=== PATIENT | female | born 1995 | race American Indian/Alaskan Native ===

== ENCOUNTER 2018-12-17 21:15 | Emergency (ER) | payer OTHER ==
[~2018-12-17] VITALS: Ht 157.5 cm; Wt 54.4 kg
[~2018-12-17 21:15] MED LIST: BIRTH CONTROL PO; IBUP800 PO; Robaxin500 MG PO
== END 2018-12-18 01:24 | disposition left against medical advice (07) ==
LOC: ER 21:15
DX: Z53.21 Procedure and treatment not carried out due to patient leaving prior to being seen by health care provider (principal)

== ENCOUNTER 2019-02-12 22:49 | Emergency (ER) | payer MEDICAID ==
[~2019-02-12] VITALS: Ht 157.5 cm; Wt 54.4 kg
[2019-02-12 23:16] LABS: BASOPHILS ABSOLUTE AUTO 0.02 K/mm3 (0.00-0.23); BASOPHILS PERCENT AUTO 0 % (0-2); EOSINOPHILS ABSOLUTE AUTO 0.22 K/mm3 (0.00-0.68); EOSINOPHILS PERCENT AUTO 2 % (0-6); Hematocrit 39.9 % (33.0-51.0); Hemoglobin 13.1 g/dL (11.5-16.0); IMMATURE GRAN ABSOLUTE AUTO 0.01 K/mm3 (0.00-0.10); IMMATURE GRAN PERCENT AUTO 0 % (0-1); LYMPHOCYTES ABSOLUTE AUTO 3.18 K/mm3 (0.84-5.20); LYMPHOCYTES PERCENT AUTO 34 % (21-46); MONOCYTES ABSOLUTE AUTO 0.67 K/mm3 (0.16-1.47); MONOCYTES PERCENT AUTO 7 % (4-13); Mean Corpuscular HGB 31.4 pg (26.0-34.0); Mean Corpuscular HGB Conc 32.8 g/dL (31.5-36.5); Mean Corpuscular Volume 96 fL (80-100); Mean Platelet Volume 11.8 fL (9.1-12.4); NEUTROPHILS ABSOLUTE AUTO 5.31 K/mm3 (1.96-9.15); NEUTROPHILS PERCENT AUTO 57 % (41-73); Platelet Count 309 K/mm3 (150-400); RDW Coefficient Variation 12.4 % (11.7-14.2); RDW Standard Deviation 43.8 fL (35.1-46.3); Red Blood Cell Count 4.17 M/mm3 (3.80-5.20); White Blood Cell Count 9.41 K/mm3 (4.00-11.30)
[2019-02-12 23:33] LABS: Alanine Aminotransfer (ALT/SGP 20 U/L (12-78); Albumin/Globulin Ratio 1.2 (0.8-1.8); Alk Phos 59 U/L (50-136); Anion Gap 8 mmol/L (6-16); Aspartate Aminotrans (AST/SGOT 16 U/L (12-37); Bilirubin, Total 0.4 mg/dL (0.1-1.0); Blood Urea Nitrogen 18 mg/dL (8-24); Bun/Creatinine Ratio 30.5 (12.0-20.0); CO2, Blood 26 mmol/L (21-32); Calcium, Blood 8.8 mg/dL (8.5-10.1); Chloride, Blood 107 mmol/L (98-108); Creatinine, Blood 0.59 mg/dL (0.40-1.00); Globulin, Blood 3.4 g/dL (2.2-4.0); Glomerular Filtration Rate >60 (60-); Glucose, Blood 85 mg/dL (70-99); Sodium, Blood 141 mmol/L (136-145); Total Protein, Blood 7.4 g/dL (6.4-8.2)
[2019-02-13 00:11] LABS: Source, Urine Clean Catch
[2019-02-13 00:21] LABS: Amorphous Light (0-Heavy); Appearance, Urine Hazy (Clear); Bacteria Few /hpf; Bilirubin, Urine 1+ (Neg); Blood, Urine Neg (Neg); Color, Urine Amber (P-Yellow); Glucose Qualitative, Urine Neg (Neg); Ketones, Urine 2+ (Neg); Leukocyte Esterase, Urine 1+ (Neg); Mucus Mod (0-Heavy); Nitrite, Urine Neg (Neg); Protein, Urine 1+ (Neg); Red Blood Cells, Urine Not Seen /hpf (0-2); Specific Gravity, Urine 1.025 (1.003-1.022); Squamous Epithelial Cells Few /hpf (Few); Urobilinogen, Urine 2+ (Normal); White Blood Cells, Urine 0-2 /hpf (0-5)
[2019-02-13] MEDS ORDERED: Colace100 MG PO (02:32)
[2019-02-16 02:44] LABS: CHLAMYDIA TRACHOMATIS, NAA Negative (Negative); NEISSERIA GONORRHOEAE, NAA Negative (Negative)
== END 2019-02-13 02:52 | disposition home or self-care (01) ==
LOC: ER 22:49
PROVIDERS: Emergency Medicine
DX: R10.32 Left lower quadrant pain (principal); F41.9 Anxiety disorder, unspecified; F17.200 Nicotine dependence, unspecified, uncomplicated
CPT/HCPCS: 36415; 76856; 80053; 81001; 81025; 84443; 85025; 87086; 87491; 87591; 99284-25

== ENCOUNTER 2021-03-29 15:16 | Emergency (ER) | payer OTHER ==
[~2021-03-29] VITALS: Ht 157.5 cm; Wt 70.3 kg
[~2021-03-29 15:16] MED LIST changes: +Colace100 MG PO
[2021-03-29] MEDS ORDERED: Flagyl500 MG PO (15:29)
== END 2021-03-29 15:31 | disposition home or self-care (01) ==
LOC: ER 15:16
DX: N89.8 Other specified noninflammatory disorders of vagina (principal); F17.200 Nicotine dependence, unspecified, uncomplicated; Z79.899 Other long term (current) drug therapy
CPT/HCPCS: 99283

== ENCOUNTER 2021-04-06 16:00 | Emergency (ER) | payer OTHER ==
[~2021-04-06] VITALS: Ht 157.5 cm; Wt 70.3 kg
[~2021-04-06 16:00] MED LIST changes: +Flagyl500 MG PO
[2021-04-06 17:09] LABS: BASOPHILS ABSOLUTE AUTO 0.02 K/mm3 (0.00-0.23); BASOPHILS PERCENT AUTO 0 % (0-2); EOSINOPHILS ABSOLUTE AUTO 0.05 K/mm3 (0.00-0.68); EOSINOPHILS PERCENT AUTO 1 % (0-6); Hematocrit 41.5 % (33.0-51.0); Hemoglobin 13.8 g/dL (11.5-16.0); IMMATURE GRAN ABSOLUTE AUTO 0.02 K/mm3 (0.00-0.10); IMMATURE GRAN PERCENT AUTO 0 % (0-1); LYMPHOCYTES ABSOLUTE AUTO 1.69 K/mm3 (0.84-5.20); LYMPHOCYTES PERCENT AUTO 23 % (21-46); MONOCYTES ABSOLUTE AUTO 0.58 K/mm3 (0.16-1.47); MONOCYTES PERCENT AUTO 8 % (4-13); Mean Corpuscular HGB 31.4 pg (26.0-34.0); Mean Corpuscular HGB Conc 33.3 g/dL (31.5-36.5); Mean Corpuscular Volume 95 fL (80-100); Mean Platelet Volume 12.2 fL (9.1-12.4); NEUTROPHILS ABSOLUTE AUTO 5.16 K/mm3 (1.96-9.15); NEUTROPHILS PERCENT AUTO 69 % (41-73); Platelet Count 237 K/mm3 (150-400); RDW Coefficient Variation 14.7 % (11.7-14.2); RDW Standard Deviation 51.1 fL (35.1-46.3); Red Blood Cell Count 4.39 M/mm3 (3.80-5.20); White Blood Cell Count 7.52 K/mm3 (4.00-11.30)
[2021-04-06 17:18] LABS: Alanine Aminotransfer (ALT/SGP 18 U/L (12-78); Albumin, Blood 3.9 g/dL (3.4-5.0); Alk Phos 46 U/L (50-136); Anion Gap 5 mmol/L (6-16); Aspartate Aminotrans (AST/SGOT 11 U/L (12-37); Bilirubin, Total 0.3 mg/dL (0.1-1.0); Blood Urea Nitrogen 10 mg/dL (8-24); Bun/Creatinine Ratio 15.1 (12.0-20.0); CO2, Blood 28 mmol/L (21-32); Calcium, Blood 9.1 mg/dL (8.5-10.1); Chloride, Blood 107 mmol/L (98-108); Creatinine, Blood 0.66 mg/dL (0.40-1.00); Globulin, Blood 3.9 g/dL (2.2-4.0); Glomerular Filtration Rate >60 (60-); Glucose, Blood 96 mg/dL (70-99); Sodium, Blood 140 mmol/L (136-145); Total Protein, Blood 7.8 g/dL (6.4-8.2)
[2021-04-06] MEDS ORDERED: ONDA4ODT MM (18:22)
== END 2021-04-06 18:50 | disposition home or self-care (01) ==
LOC: ER 16:00
PROVIDERS: Physician Assistant
DX: R11.2 Nausea with vomiting, unspecified (principal); F17.200 Nicotine dependence, unspecified, uncomplicated; Z79.899 Other long term (current) drug therapy
CPT/HCPCS: 36415; 80053; 81025; 83690; 84703; 85025; 99284; J7030

== ENCOUNTER → 2021-04-16 | Outpatient (CLI) | payer OTHER ==
[~2021-04-16] MED LIST changes: +ONDA4ODT MM
[2021-04-18 01:10] LABS: CHLAMYDIA TRACHOMATIS, NAA Negative (Negative)
== END | disposition home or self-care (01) ==
LOC: LAB SHORT 11:56
PROVIDERS: Family Medicine
DX: R30.0 Dysuria (principal); Z91.89 Other specified personal risk factors, not elsewhere classified
CPT/HCPCS: 87077; 87086; 87186; 87491; 87591

== ENCOUNTER 2021-09-01 12:18 | Emergency (ER) | payer OTHER ==
[~2021-09-01] VITALS: Ht 160 cm; Wt 61.2 kg
[2021-09-01 12:56] LABS: BASOPHILS ABSOLUTE AUTO 0.02 K/mm3 (0.00-0.23); BASOPHILS PERCENT AUTO 0 % (0-2); EOSINOPHILS ABSOLUTE AUTO 0.19 K/mm3 (0.00-0.68); EOSINOPHILS PERCENT AUTO 2 % (0-6); Hematocrit 40.3 % (33.0-51.0); Hemoglobin 13.4 g/dL (11.5-16.0); IMMATURE GRAN ABSOLUTE AUTO 0.03 K/mm3 (0.00-0.10); IMMATURE GRAN PERCENT AUTO 0 % (0-1); LYMPHOCYTES ABSOLUTE AUTO 1.53 K/mm3 (0.84-5.20); LYMPHOCYTES PERCENT AUTO 19 % (21-46); MONOCYTES ABSOLUTE AUTO 0.34 K/mm3 (0.16-1.47); MONOCYTES PERCENT AUTO 4 % (4-13); Mean Corpuscular HGB 31.7 pg (26.0-34.0); Mean Corpuscular HGB Conc 33.3 g/dL (31.5-36.5); Mean Corpuscular Volume 95 fL (80-100); NEUTROPHILS ABSOLUTE AUTO 6.16 K/mm3 (1.96-9.15); NEUTROPHILS PERCENT AUTO 75 % (41-73); Platelet Count 295 K/mm3 (150-400); RDW Coefficient Variation 12.7 % (11.7-14.2); RDW Standard Deviation 44.9 fL (35.1-46.3); Red Blood Cell Count 4.23 M/mm3 (3.80-5.20); White Blood Cell Count 8.27 K/mm3 (4.00-11.30)
[2021-09-01 13:12] LABS: Alanine Aminotransfer (ALT/SGP 19 U/L (12-78); Albumin, Blood 3.7 g/dL (3.4-5.0); Albumin/Globulin Ratio 1.1 (0.8-1.8); Alk Phos 45 U/L (50-136); Anion Gap 6 mmol/L (6-16); Aspartate Aminotrans (AST/SGOT 12 U/L (12-37); Bilirubin, Total 0.4 mg/dL (0.1-1.0); Blood Urea Nitrogen 12 mg/dL (8-24); Bun/Creatinine Ratio 18.5 (12.0-20.0); CO2, Blood 27 mmol/L (21-32); Calcium, Blood 9.4 mg/dL (8.5-10.1); Chloride, Blood 109 mmol/L (98-108); Creatinine, Blood 0.65 mg/dL (0.40-1.00); Globulin, Blood 3.4 g/dL (2.2-4.0); Glomerular Filtration Rate >60 (60-); Glucose, Blood 94 mg/dL (70-99); Potassium, Blood 4.1 mmol/L (3.5-5.5); Sodium, Blood 142 mmol/L (136-145); Total Protein, Blood 7.1 g/dL (6.4-8.2)
[2021-09-01] MEDS ORDERED: ONDA4ODT SL (17:07)
[2021-09-01] MEDS ORDERED: IBUP400 PO (17:07)
== END 2021-09-01 17:40 | disposition home or self-care (01) ==
LOC: ER 12:18
PROVIDERS: Physician Assistant
DX: F11.23 Opioid dependence with withdrawal (principal); R00.2 Palpitations; F17.210 Nicotine dependence, cigarettes, uncomplicated; Z79.899 Other long term (current) drug therapy
CPT/HCPCS: 36415; 80053; 85025; 96374; 99284-25; A9270; J2405; J7030

== ENCOUNTER → 2021-09-19 | Outpatient (CLI) | payer OTHER ==
[~2021-09-19] MED LIST changes: +IBUP400 PO; +ONDA4ODT SL
[2021-09-19 15:53] LABS: BASOPHILS ABSOLUTE AUTO 0.01 K/mm3 (0.00-0.23); BASOPHILS PERCENT AUTO 0 % (0-2); EOSINOPHILS PERCENT AUTO 3 % (0-6); Hematocrit 42.7 % (33.0-51.0); Hemoglobin 13.9 g/dL (11.5-16.0); IMMATURE GRAN ABSOLUTE AUTO 0.02 K/mm3 (0.00-0.10); IMMATURE GRAN PERCENT AUTO 0 % (0-1); LYMPHOCYTES ABSOLUTE AUTO 1.96 K/mm3 (0.84-5.20); LYMPHOCYTES PERCENT AUTO 33 % (21-46); MONOCYTES ABSOLUTE AUTO 0.27 K/mm3 (0.16-1.47); MONOCYTES PERCENT AUTO 5 % (4-13); Mean Corpuscular HGB 31.7 pg (26.0-34.0); Mean Corpuscular HGB Conc 32.6 g/dL (31.5-36.5); Mean Corpuscular Volume 97 fL (80-100); Mean Platelet Volume 12.7 fL (9.1-12.4); NEUTROPHILS ABSOLUTE AUTO 3.49 K/mm3 (1.96-9.15); NEUTROPHILS PERCENT AUTO 59 % (41-73); Platelet Count 277 K/mm3 (150-400); RDW Coefficient Variation 12.9 % (11.7-14.2); RDW Standard Deviation 46.4 fL (35.1-46.3); Red Blood Cell Count 4.39 M/mm3 (3.80-5.20); White Blood Cell Count 5.95 K/mm3 (4.00-11.30)
[2021-09-19 16:00] LABS: Alanine Aminotransfer (ALT/SGP 17 U/L (12-78); Albumin/Globulin Ratio 1.2 (0.8-1.8); Alk Phos 48 U/L (50-136); Amylase, Blood 58 U/L (25-115); Anion Gap 5 mmol/L (6-16); Aspartate Aminotrans (AST/SGOT 9 U/L (12-37); Bilirubin, Total 0.3 mg/dL (0.1-1.0); Blood Urea Nitrogen 12 mg/dL (8-24); Bun/Creatinine Ratio 19.7 (12.0-20.0); CO2, Blood 27 mmol/L (21-32); Calcium, Blood 9.3 mg/dL (8.5-10.1); Chloride, Blood 106 mmol/L (98-108); Creatinine, Blood 0.61 mg/dL (0.40-1.00); Globulin, Blood 3.3 g/dL (2.2-4.0); Glomerular Filtration Rate >60 (60-); Glucose, Blood 86 mg/dL (70-99); Potassium, Blood 4.4 mmol/L (3.5-5.5); Sodium, Blood 138 mmol/L (136-145); Total Protein, Blood 7.3 g/dL (6.4-8.2)
[2021-09-19 16:26] LABS: Beta Hcg Serum Pregnancy Negative (Negative)
[2021-09-20 07:09] LABS: HIV SCREEN 4TH GENERATION WRFX Non Reactive (Non Reactive)
[2021-09-21 09:15] LABS: RPR Non-reactive (Nonreactive)
[2021-09-21 15:11] LABS: CHLAMYDIA TRACHOMATIS, NAA Negative (Negative)
== END | disposition home or self-care (01) ==
LOC: LAB SHORT 14:52
PROVIDERS: Physician Assistant
DX: Z11.59 Encounter for screening for other viral diseases (principal); R11.2 Nausea with vomiting, unspecified
CPT/HCPCS: 80053; 82150; 83690; 84703; 85025; 86592; 87389

== ENCOUNTER 2023-04-02 06:50 | Emergency (ER) | payer OTHER ==
[~2023-04-02] VITALS: Ht 160 cm; Wt 65.8 kg
[2023-04-02] MEDS ORDERED: METH40 PO (07:40)
[2023-04-02] MEDS ORDERED: ESCI10 PO (07:40)
[2023-04-02] MEDS ORDERED: MIRT30 PO (07:40)
[2023-04-02] MEDS ORDERED: ABILIFY MYCITE10 M2 PO (07:41)
[2023-04-02 08:18] LABS: BASOPHILS ABSOLUTE AUTO 0.01 K/mm3 (0.00-0.23); BASOPHILS PERCENT AUTO 0 % (0-2); EOSINOPHILS ABSOLUTE AUTO 0.32 K/mm3 (0.00-0.68); EOSINOPHILS PERCENT AUTO 5 % (0-6); Hematocrit 34.9 % (33.0-51.0); Hemoglobin 11.5 g/dL (11.5-16.0); IMMATURE GRAN ABSOLUTE AUTO 0.01 K/mm3 (0.00-0.10); IMMATURE GRAN PERCENT AUTO 0 % (0-1); LYMPHOCYTES ABSOLUTE AUTO 3.58 K/mm3 (0.84-5.20); LYMPHOCYTES PERCENT AUTO 52 % (21-46); MONOCYTES ABSOLUTE AUTO 0.47 K/mm3 (0.16-1.47); MONOCYTES PERCENT AUTO 7 % (4-13); Mean Corpuscular HGB 30.3 pg (26.0-34.0); Mean Corpuscular Volume 92 fL (80-100); Mean Platelet Volume 11.5 fL (9.1-12.4); NEUTROPHILS ABSOLUTE AUTO 2.52 K/mm3 (1.96-9.15); NEUTROPHILS PERCENT AUTO 37 % (41-73); Platelet Count 268 K/mm3 (150-400); RDW Coefficient Variation 13.4 % (11.7-14.2); RDW Standard Deviation 45.6 fL (35.1-46.3); Red Blood Cell Count 3.79 M/mm3 (3.80-5.20); White Blood Cell Count 6.91 K/mm3 (4.00-11.30)
[2023-04-02 08:34] LABS: Alanine Aminotransfer (ALT/SGP 16 U/L (12-78); Albumin, Blood 3.8 g/dL (3.4-5.0); Alk Phos 66 U/L (50-136); Anion Gap 7 mmol/L (6-16); Aspartate Aminotrans (AST/SGOT 13 U/L (12-37); Bilirubin, Total <0.1 mg/dL (0.1-1.0); Blood Urea Nitrogen 9 mg/dL (8-24); Bun/Creatinine Ratio 14.7 (12.0-20.0); CO2, Blood 26 mmol/L (21-32); Calcium, Blood 9.1 mg/dL (8.5-10.1); Chloride, Blood 106 mmol/L (98-108); Creatinine, Blood 0.61 mg/dL (0.40-1.00); Globulin, Blood 3.7 g/dL (2.2-4.0); Glomerular Filtration Rate 125 (60-); Glucose, Blood 95 mg/dL (70-99); Potassium, Blood 3.4 mmol/L (3.5-5.5); Sodium, Blood 139 mmol/L (136-145); Total Protein, Blood 7.5 g/dL (6.4-8.2)
[2023-04-02 10:00] VITALS: BP 100/65
== END 2023-04-02 10:42 | disposition home or self-care (01) ==
LOC: ER 06:50
PROVIDERS: Emergency Medicine
DX: O02.1 Missed abortion (principal); O99.331 Smoking (tobacco) complicating pregnancy, first trimester; F17.210 Nicotine dependence, cigarettes, uncomplicated; Z79.899 Other long term (current) drug therapy; Z3A.01 Less than 8 weeks gestation of pregnancy
CPT/HCPCS: 76801; 76817; 80053; 83690; 84702; 84703; 85025; 86900; 86901; 99284-25

== ENCOUNTER 2023-08-01 10:19 | Emergency (ER) | payer OTHER ==
[~2023-08-01] VITALS: Ht 162.6 cm; Wt 61.2 kg
[~2023-08-01 10:19] MED LIST changes: +ABILIFY MYCITE10 M2 PO; +ESCI10 PO; +METH40 PO; +MIRT30 PO
[2023-08-01 10:48] VITALS: BP 113/74
[2023-08-01] MEDS ORDERED: AMOCLA875 PO (10:51)
[2023-08-01] MEDS ORDERED: Ultram50 MG PO (10:51)
== END 2023-08-01 10:52 | disposition home or self-care (01) ==
LOC: ER 10:19
DX: K04.7 Periapical abscess without sinus (principal); Z79.899 Other long term (current) drug therapy; F17.210 Nicotine dependence, cigarettes, uncomplicated
CPT/HCPCS: 99282

== ENCOUNTER 2024-03-17 12:05 | Emergency (ER) | payer OTHER ==
[~2024-03-17] VITALS: Ht 162.6 cm; Wt 72.6 kg
[~2024-03-17 12:05] MED LIST changes: +AMOCLA875 PO; +Monodox100 MG PO; +Ultram50 MG PO
[2024-03-17 12:23] VITALS: BP 148/89
[2024-03-17] MEDS ORDERED: CefTRIAXone 500 MG Vial IM ONE (12:30)
[2024-03-17] MEDS ORDERED: DOXY100 PO (12:32)
[2024-03-17] MEDS ORDERED: METR500 PO (12:32)
== END 2024-03-17 13:10 | disposition home or self-care (01) ==
LOC: ER 12:05
DX: Z20.2 Contact with and (suspected) exposure to infections with a predominantly sexual mode of transmission (principal); Z79.899 Other long term (current) drug therapy
CPT/HCPCS: 96372; 99282-25; J0696

== ENCOUNTER 2024-06-06 09:36 | Emergency (ER) | payer OTHER ==
[~2024-06-06] VITALS: Ht 160 cm; Wt 70.3 kg
[~2024-06-06 09:36] MED LIST changes: +DOXY100 PO; +METR500 PO
[2024-06-06 10:43] LABS: BASOPHILS ABSOLUTE AUTO 0.02 K/mm3 (0.00-0.23); BASOPHILS PERCENT AUTO 0 % (0-2); EOSINOPHILS ABSOLUTE AUTO 0.08 K/mm3 (0.00-0.68); EOSINOPHILS PERCENT AUTO 1 % (0-6); Hematocrit 37.4 % (33.0-51.0); Hemoglobin 12.5 g/dL (11.5-16.0); IMMATURE GRAN ABSOLUTE AUTO 0.04 K/mm3 (0.00-0.10); IMMATURE GRAN PERCENT AUTO 0 % (0-1); LYMPHOCYTES ABSOLUTE AUTO 1.43 K/mm3 (0.84-5.20); LYMPHOCYTES PERCENT AUTO 15 % (21-46); MONOCYTES ABSOLUTE AUTO 0.39 K/mm3 (0.16-1.47); MONOCYTES PERCENT AUTO 4 % (4-13); Mean Corpuscular HGB Conc 33.4 g/dL (31.5-36.5); Mean Corpuscular Volume 93 fL (80-100); Mean Platelet Volume 12.2 fL (9.1-12.4); NEUTROPHILS ABSOLUTE AUTO 7.36 K/mm3 (1.96-9.15); NEUTROPHILS PERCENT AUTO 79 % (41-73); Platelet Count 264 K/mm3 (150-400); RDW Coefficient Variation 13.1 % (11.7-14.2); RDW Standard Deviation 44.4 fL (35.1-46.3); Red Blood Cell Count 4.03 M/mm3 (3.80-5.20); White Blood Cell Count 9.32 K/mm3 (4.00-11.30)
[2024-06-06 11:24] LABS: Albumin, Blood 3.1 g/dL (3.4-5.0); Albumin/Globulin Ratio 0.8 (0.8-1.8); Bilirubin, Total 0.3 mg/dL (0.1-1.0); Bun/Creatinine Ratio 14.2 (12.0-20.0); Calcium, Blood 9.1 mg/dL (8.5-10.1); Creatinine, Blood 0.57 mg/dL (0.40-1.00); Globulin, Blood 3.9 g/dL (2.2-4.0); Potassium, Blood 3.9 mmol/L (3.5-5.5)
[2024-06-06] MEDS ORDERED: DiphenhydrAMINE HCl 50 MG/ML 1ML Vial IV ONE (12:05)
[2024-06-06] MEDS ORDERED: Metoclopramide HCl 5MG / ML 2ML Vial IV ONE (12:05)
[2024-06-06] MEDS ORDERED: Clindamycin Phosphate 300 MG in NS 50 ML IV ONE (12:05)
[2024-06-06] MEDS ORDERED: CLIN300 PO (13:57)
[2024-06-06 14:03] VITALS: BP 104/54
== END 2024-06-06 14:08 | disposition home or self-care (01) ==
LOC: ER 09:36
PROVIDERS: Emergency Medicine
DX: L03.115 Cellulitis of right lower limb (principal); L02.415 Cutaneous abscess of right lower limb; Z79.899 Other long term (current) drug therapy
CPT/HCPCS: 80053; 84702; 85025; J1200; J2765

== ENCOUNTER → 2024-06-21 | Outpatient (CLI) | payer OTHER ==
[~2024-06-21] MED LIST changes: +CLIN300 PO
[2024-06-21 14:25] LABS: BASOPHILS ABSOLUTE AUTO 0.01 K/mm3 (0.00-0.23); BASOPHILS PERCENT AUTO 0 % (0-2); EOSINOPHILS ABSOLUTE AUTO 0.29 K/mm3 (0.00-0.68); EOSINOPHILS PERCENT AUTO 3 % (0-6); Hematocrit 33.7 % (33.0-51.0); Hemoglobin 11.4 g/dL (11.5-16.0); IMMATURE GRAN ABSOLUTE AUTO 0.02 K/mm3 (0.00-0.10); IMMATURE GRAN PERCENT AUTO 0 % (0-1); LYMPHOCYTES ABSOLUTE AUTO 2.03 K/mm3 (0.84-5.20); LYMPHOCYTES PERCENT AUTO 23 % (21-46); MONOCYTES ABSOLUTE AUTO 0.52 K/mm3 (0.16-1.47); MONOCYTES PERCENT AUTO 6 % (4-13); Mean Corpuscular HGB 31.5 pg (26.0-34.0); Mean Corpuscular HGB Conc 33.8 g/dL (31.5-36.5); Mean Corpuscular Volume 93 fL (80-100); Mean Platelet Volume 11.6 fL (9.1-12.4); NEUTROPHILS PERCENT AUTO 67 % (41-73); Platelet Count 275 K/mm3 (150-400); RDW Coefficient Variation 13.3 % (11.7-14.2); RDW Standard Deviation 45.6 fL (35.1-46.3); Red Blood Cell Count 3.62 M/mm3 (3.80-5.20); White Blood Cell Count 8.67 K/mm3 (4.00-11.30)
[2024-06-21 17:41] LABS: Source, Urine Clean Catch
[2024-06-21 19:22] LABS: Appearance, Urine Hazy (Clear); Bilirubin, Urine Neg (Neg); Blood, Urine Neg (Neg); Color, Urine Yellow (P-Yellow); Glucose Qualitative, Urine Neg (Neg); Ketones, Urine Neg (Neg); Leukocyte Esterase, Urine Neg (Neg); Nitrite, Urine Neg (Neg); Protein, Urine Neg (Neg); Urobilinogen, Urine NORM (Normal)
[2024-06-21 19:44] LABS: Bacteria Many /hpf; Mucus Light (0-Heavy); Red Blood Cells, Urine 0-2 /hpf (0-2); Squamous Epithelial Cells Mod /hpf (Few)
[2024-06-22 15:45] LABS: HEPATITIS B SURFACE ANTIGEN Negative (Negative)
[2024-06-22 17:01] LABS: HIV 1,2 COMBO ANTIGEN/ANTIBODY Negative (Negative)
[2024-06-23 10:55] LABS: HEPATITIS C AB CIA INTERP Negative (Negative); HEPATITIS C ANTIBODY CIA INDEX 0.12 IV
== END | disposition home or self-care (01) ==
LOC: LAB 13:36 → LAB SHORT 13:36
PROVIDERS: Registered Nurse Community Health
DX: Z34.92 Encounter for supervision of normal pregnancy, unspecified, second trimester (principal)
CPT/HCPCS: 81001; 84443; 86803; 87086; 87340; 87389

== ENCOUNTER → 2024-07-01 | Outpatient (CLI) | payer OTHER ==
[2024-07-03 17:55] LABS: APTIMA MEDIA TYPE Urine; C. TRACHOMATIS BY TMA Negative (Negative); N. GONORRHOEAE BY TMA Negative (Negative); SPECIMEN SOURCE Urine
== END | disposition home or self-care (01) ==
LOC: LAB 14:23 → LAB SHORT 14:23
PROVIDERS: Registered Nurse Community Health
DX: Z34.92 Encounter for supervision of normal pregnancy, unspecified, second trimester (principal)
CPT/HCPCS: 87491; 87591

== ENCOUNTER 2024-07-20 11:09 | Emergency (ER) | payer OTHER ==
[~2024-07-20] VITALS: Ht 157.5 cm; Wt 71.7 kg
[2024-07-20 11:14] VITALS: BP 133/86
== END 2024-07-20 11:17 | disposition home or self-care (01) ==
LOC: ER 11:09
DX: K59.00 Constipation, unspecified (principal); Z79.899 Other long term (current) drug therapy
CPT/HCPCS: 99282

== ENCOUNTER → 2024-09-30 | Outpatient (CLI) | payer OTHER ==
[2024-09-30 16:26] LABS: Hematocrit 35.6 % (33.0-51.0); Hemoglobin 11.8 g/dL (11.5-16.0)
== END ==
LOC: LAB 14:04 → LAB SHORT 14:04
PROVIDERS: Registered Nurse Community Health
DX: Z34.93 Encounter for supervision of normal pregnancy, unspecified, third trimester (principal)
CPT/HCPCS: 82950; 85014; 85018

== ENCOUNTER → 2024-10-13 | Outpatient (CLI) | payer OTHER ==
[2024-10-14 13:11] LABS: Chlamydia Trachomatis Urine NOT DETECTED (NOT DETECT); Neisseria Gonorrhoea Urine NOT DETECTED (NOT DETECT)
== END ==
LOC: LAB SHORT 18:27
PROVIDERS: Registered Nurse Community Health
DX: O09.893 Supervision of other high risk pregnancies, third trimester (principal); Z3A.00 Weeks of gestation of pregnancy not specified
CPT/HCPCS: 87491; 87591

== ENCOUNTER → 2024-10-26 | Outpatient (CLI) | payer OTHER | END | disposition home or self-care (01) | LOC: LAB 17:22 → LAB SHORT 17:22 | DX: Z86.14 Personal history of Methicillin resistant Staphylococcus aureus infection (principal) | CPT/HCPCS: 87081 ==

== ENCOUNTER → 2024-11-10 | Outpatient (CLI) | payer OTHER | LOC: LAB SHORT 15:37 → LAB 15:37 | DX: Z86.14 Personal history of Methicillin resistant Staphylococcus aureus infection (principal) | CPT/HCPCS: 87081 ==

== ENCOUNTER → 2024-11-29 | Outpatient (CLI) | payer OTHER | LOC: LAB 12:00 → LAB SHORT 12:00 | DX: Z34.93 Encounter for supervision of normal pregnancy, unspecified, third trimester (principal) | CPT/HCPCS: 87081; 87150 ==

== ENCOUNTER 2024-12-10 19:05 | Inpatient (IN) | payer OTHER ==
[~2024-12-10] VITALS: Ht 160 cm; Wt 88.6 kg
[~2024-12-10 19:05] MED LIST changes: +PRENATAL TABLE1 EAC2 PO; +VALA500 PO
[2024-12-10 20:41] VITALS: BP 112/68
[2024-12-10] MEDS ORDERED: OXYTOCIN/RINGER'S LACTATE 500 ML IV SCH (20:55)
[2024-12-10] MEDS ORDERED: Misoprostol 25 MCG Tab VAG PRN (20:55)
[2024-12-10] MEDS ORDERED: Oxytocin 10 Unit / ML Vial IM PRN (20:55)
[2024-12-10] MEDS ORDERED: Acetaminophen 500 MG Tab PO PRN (20:55)
[2024-12-10] MEDS ORDERED: Lactated Ringer's 1,000 ML IV SCH (20:55)
[2024-12-10] MEDS ORDERED: FentaNYL 2mcg/ml-Bup 0.1% Epd 250 ML EPI PRN (20:55)
[2024-12-10] MEDS ORDERED: Methylergonovine Maleate 0.2MG / ML 1ML Amp IM PRN (20:55)
[2024-12-10] MEDS ORDERED: Carboprost Tromethamine 250 MCG/ML 1ML Amp IM PRN (20:55)
[2024-12-10] MEDS ORDERED: ePHEDrine Sulfate 50 MG/ML 1ML Injection XX PRN (20:55)
[2024-12-10] MEDS ORDERED: Lactated Ringer's 1,000 ML IV PRN ×3 (20:55→21:00)
[2024-12-10] MEDS ORDERED: Misoprostol 200 MCG Tab BC PRN (20:55)
[2024-12-10] MEDS ORDERED: Ondansetron HCl 2 MG / ML 2ML Vial IV PRN (20:55)
[2024-12-10] MEDS ORDERED: Misoprostol 200 MCG Tab PR PRN (20:55)
[2024-12-10] MEDS ORDERED: Tranexamic Acid 100 ML IV SCH (20:55)
[2024-12-10] MEDS ORDERED: OXYTOCIN/RINGER'S LACTATE 500 ML IV PRN (20:55)
[2024-12-10] MEDS ORDERED: Calcium Carbonate 500 MG Tab Chew PO PRN (21:05)
[2024-12-10 21:32] LABS: BASOPHILS ABSOLUTE AUTO 0.01 K/mm3 (0.00-0.23); BASOPHILS PERCENT AUTO 0 % (0-2); EOSINOPHILS ABSOLUTE AUTO 0.16 K/mm3 (0.00-0.68); EOSINOPHILS PERCENT AUTO 2 % (0-6); Hematocrit 30.5 % (33.0-51.0); Hemoglobin 10.1 g/dL (11.5-16.0); IMMATURE GRAN ABSOLUTE AUTO 0.03 K/mm3 (0.00-0.10); IMMATURE GRAN PERCENT AUTO 0 % (0-1); LYMPHOCYTES ABSOLUTE AUTO 2.11 K/mm3 (0.84-5.20); LYMPHOCYTES PERCENT AUTO 22 % (21-46); MONOCYTES ABSOLUTE AUTO 0.71 K/mm3 (0.16-1.47); MONOCYTES PERCENT AUTO 8 % (4-13); Mean Corpuscular HGB 28.8 pg (26.0-34.0); Mean Corpuscular HGB Conc 33.1 g/dL (31.5-36.5); Mean Corpuscular Volume 87 fL (80-100); Mean Platelet Volume 12.6 fL (9.1-12.4); NEUTROPHILS ABSOLUTE AUTO 6.38 K/mm3 (1.96-9.15); NEUTROPHILS PERCENT AUTO 68 % (41-73); Platelet Count 236 K/mm3 (150-400); RDW Coefficient Variation 14.8 % (11.7-14.2); RDW Standard Deviation 47.2 fL (35.1-46.3); Red Blood Cell Count 3.51 M/mm3 (3.80-5.20)
[2024-12-10 22:12] VITALS: BP 119/77
[2024-12-10] MEDS ORDERED: MIRT30 PO (22:41)
[2024-12-10 22:48] VITALS: BP 125/81
[2024-12-10 23:19] VITALS: BP 129/75
[2024-12-10 23:50] VITALS: BP 142/85
[2024-12-11] VITALS (24 sets, daily range): BP systolic 90–150; BP diastolic 55–83
[2024-12-11] MEDS ORDERED: Methadone HCL 10 MG TAB PO SCH (11:50)
[2024-12-11] MEDS ORDERED: Lidocaine 2% Jelly Uro-Jet TOP ONE (13:00)
[2024-12-11] MEDS ORDERED: Sod Phosphate/Sod Biphosphate 132 ML BTL PR ONE (18:00)
[2024-12-11] MEDS ORDERED: Methadone HCL 5 MG TAB PO PRN (18:00)
[2024-12-11] MEDS ORDERED: Magnesium Citrate 300 ML BTL PO ONE (18:00)
[2024-12-12] VITALS (50 sets, daily range): BP systolic 83–140; BP diastolic 50–85
[2024-12-12] MEDS ORDERED: Lidocaine HCl 2% 10 ML SDA ONE (08:32)
[2024-12-12] MEDS ORDERED: Methadone HCL 10 MG TAB PO SCH (10:00)
[2024-12-12] MEDS ORDERED: Bupivacaine 0.5% HCl 5 MG/ML 30MLVIAL ONE (17:09)
[2024-12-12] MEDS ORDERED: EpiNEPhrine 1 MG/1 ML 1ML Vial ONE (17:12)
[2024-12-12] MEDS ORDERED: NS 1,000 ML IV ONE (17:44)
[2024-12-12] MEDS ORDERED: Famotidine 10 MG/ML 2ML Vial IV ONE (18:05)
[2024-12-12] MEDS ORDERED: CeFAZolin Sodium 2,000 MG in NS 100 ML IV SCH (18:05)
[2024-12-12] MEDS ORDERED: Metoclopramide HCl 5MG / ML 2ML Vial IV ONE (18:05)
[2024-12-12] MEDS ORDERED: Azithromycin 500 MG in NS 250 ML IV SCH (18:05)
[2024-12-12] MEDS ORDERED: Oxytocin 10 Unit / ML Vial ONE ×3 (18:34→18:35)
[2024-12-12 18:49] LABS: PCO2 Cord - Arterial 59.7 mmHg (40-50); PO2 Cord - Arterial < 14.0 mmHg (16-20); pH Cord - Arterial 7.26 (7.28-7.35)
[2024-12-12 18:51] LABS: PO2 Cord - Venous 25.2 mmHg (28-32); pH Umbilical Cord - Venous 7.35 (7.26-7.35)
[2024-12-12] MEDS ORDERED: Ketorolac Tromethamine 30mg Vial ONE (18:58)
--- NOTE | 2024-12-12 19:02 | NUR ---
12/12/241901 Ethan Chavis PT IN ROOM UPON ARRIVAL TO [facility], REPORT TAKEN AT 1850 AND CARE ASSUMED AT THAT TIME
[2024-12-12] MEDS ORDERED: Lanolin Cream TOP PRN (19:25)
[2024-12-12] MEDS ORDERED: OxyCODONE HCL 5 MG TAB PO PRN ×2 (19:25→19:30)
[2024-12-12] MEDS ORDERED: Acetaminophen 500 MG Tab PO PRN (19:25)
[2024-12-12] MEDS ORDERED: Ondansetron HCl 2 MG / ML 2ML Vial IV PRN (19:25)
[2024-12-12] MEDS ORDERED: Simethicone 80 MG Chew PO PRN (19:30)
[2024-12-12] MEDS ORDERED: HydrOXYzine Pamoate 25 MG Cap PO PRN (19:30)
[2024-12-12] MEDS ORDERED: Promethazine HCl 25 MG Tab PO PRN (19:30)
[2024-12-12] MEDS ORDERED: NS 1,000 ML BAG IR SCH (19:45)
[2024-12-12] MEDS ORDERED: Ketorolac Tromethamine 30mg Vial IV SCH (20:00)
[2024-12-12] MEDS ORDERED: Docusate Sodium 100 MG Cap PO SCH (21:00)
[2024-12-12] MEDS ORDERED: Magnesium Hydroxide Conc 10 ML UDC PO SCH (21:00)
[2024-12-13] VITALS (11 sets, daily range): BP systolic 99–122; BP diastolic 55–78
[2024-12-13] MEDS ORDERED: Ibuprofen 400 MG Tab PO SCH
[2024-12-13 01:01] LABS: Albumin/Globulin Ratio 0.5 (0.8-1.8); Bilirubin, Total 0.2 mg/dL (0.1-1.0); Bun/Creatinine Ratio 10.8 (12.0-20.0); Calcium, Blood 7.8 mg/dL (8.5-10.1); Creatinine, Blood 0.56 mg/dL (0.40-1.00); Globulin, Blood 3.7 g/dL (2.2-4.0); Magnesium, Blood 2.4 mg/dL (1.6-2.4); Potassium, Blood 3.8 mmol/L (3.5-5.5); Total Protein, Blood 5.7 g/dL (6.4-8.2)
[2024-12-13 06:10] LABS: BASOPHILS ABSOLUTE AUTO 0.01 K/mm3 (0.00-0.23); BASOPHILS PERCENT AUTO 0 % (0-2); EOSINOPHILS PERCENT AUTO 0 % (0-6); Hematocrit 26.4 % (33.0-51.0); Hemoglobin 8.5 g/dL (11.5-16.0); IMMATURE GRAN ABSOLUTE AUTO 0.09 K/mm3 (0.00-0.10); IMMATURE GRAN PERCENT AUTO 1 % (0-1); LYMPHOCYTES ABSOLUTE AUTO 1.04 K/mm3 (0.84-5.20); LYMPHOCYTES PERCENT AUTO 7 % (21-46); MONOCYTES ABSOLUTE AUTO 0.71 K/mm3 (0.16-1.47); MONOCYTES PERCENT AUTO 5 % (4-13); Mean Corpuscular HGB 28.5 pg (26.0-34.0); Mean Corpuscular HGB Conc 32.2 g/dL (31.5-36.5); Mean Corpuscular Volume 89 fL (80-100); Mean Platelet Volume 12.8 fL (9.1-12.4); NEUTROPHILS ABSOLUTE AUTO 12.83 K/mm3 (1.96-9.15); NEUTROPHILS PERCENT AUTO 87 % (41-73); Platelet Count 199 K/mm3 (150-400); Red Blood Cell Count 2.98 M/mm3 (3.80-5.20); White Blood Cell Count 14.68 K/mm3 (4.00-11.30)
[2024-12-13] MEDS ORDERED: Prenatal Vit/FE Fumarate/FA 1 Tab PO SCH (09:00)
[2024-12-13] MEDS ORDERED: Tranexamic Acid 100 ML IV ONE (10:45)
[2024-12-13] MEDS ORDERED: Sod Ferric Gluc Complx/Sucrose 125 MG in NS 100 ML IV SCH (12:00)
[2024-12-13] MEDS ORDERED: Ketorolac Tromethamine 30mg Vial IV PRN (13:45)
[2024-12-13] MEDS ORDERED: FentaNYL Citrate 50 MCG/ML 2 ML Injection ONE (17:15)
[2024-12-13] MEDS ORDERED: FentaNYL Citrate 50 MCG/ML 2 ML Injection IV ONE (17:15)
[2024-12-13] MEDS ORDERED: Methylergonovine Maleate 0.2 MG Tab PO ONE (17:55)
[2024-12-13] MEDS ORDERED: CeFAZolin Sodium 2,000 MG in NS 100 ML IV SCH (18:20)
--- NOTE | 2024-12-13 20:13 | NUR ---
PT D/C'D PER ORDERS TO LEAVE FOR SACRJACOB BARTLETT TO BE WITH NB THAT WAS TRANSPORTED FORO HIGHER LEVEL OF CARE. AFTER PT LEFT THIS RN CALLED [facility] TO TOUCH BASES WITH THEM AND MAKE THEM AWARE OF PT'S STATUS AND THAT SHE HAD DELIVERED AND WAS LEAVING FOR THERESE ANTUNEZ. RN TALKED TO SHERYL DRY CHAIN WORKER. REPORT ID NUMBER IS [id number].
== END 2024-12-13 20:00 | disposition home or self-care (01) | DRG 787 ==
LOC: BC 19:05 → OBS 19:05 → BC 19:17
PROVIDERS: Family Medicine; ADMIT Registered Nurse Community Health
PROC: 4A1HXCZ Monitoring of Products of Conception, Cardiac Rate, External Approach (ICD-10-PCS; principal; 2024-12-10)
PROC: 3E0P7VZ Introduction of Hormone into Female Reproductive, Via Natural or Artificial Opening (ICD-10-PCS; 2024-12-10)
PROC: 10H07YZ Insertion of Other Device into Products of Conception, Via Natural or Artificial Opening (ICD-10-PCS; 2024-12-12)
PROC: 4A1H7CZ Monitoring of Products of Conception, Cardiac Rate, Via Natural or Artificial Opening (ICD-10-PCS; 2024-12-12)
PROC: 10H073Z Insertion of Monitoring Electrode into Products of Conception, Via Natural or Artificial Opening (ICD-10-PCS; 2024-12-12)
PROC: 10D00Z1 Extraction of Products of Conception, Low, Open Approach (ICD-10-PCS; 2024-12-12)
DX: O99.324 Drug use complicating childbirth (principal); F11.20 Opioid dependence, uncomplicated; O98.32 Other infections with a predominantly sexual mode of transmission complicating childbirth; Z3A.38 38 weeks gestation of pregnancy; Z37.0 Single live birth; A60.09 Herpesviral infection of other urogenital tract; O99.344 Other mental disorders complicating childbirth; F32.A Depression, unspecified; O76 Abnormality in fetal heart rate and rhythm complicating labor and delivery
CPT/HCPCS: 36415; 59070; 80053; 82803; 83735; 85025; 86850; 86900; 86901; 86923; A9270; J0171; J0456; J0690; J1885; J2003; J2405; J2590; J2765; J2916; J3010; J7030; J7050; J7120

== ENCOUNTER → 2025-01-19 | Outpatient (CLI) | payer OTHER | END | disposition home or self-care (01) | LOC: LAB SHORT 19:41 → LAB 19:41 | DX: N89.8 Other specified noninflammatory disorders of vagina (principal) | CPT/HCPCS: 87070; 87205 ==

== ENCOUNTER 2025-06-28 16:30 | Emergency (ER) | payer OTHER ==
[~2025-06-28] VITALS: Ht 160 cm; Wt 61.2 kg
[2025-06-28 17:18] LABS: BASOPHILS ABSOLUTE AUTO 0.02 K/mm3 (0.00-0.23); BASOPHILS PERCENT AUTO 0 % (0-2); EOSINOPHILS ABSOLUTE AUTO 0.02 K/mm3 (0.00-0.68); EOSINOPHILS PERCENT AUTO 0 % (0-6); Hematocrit 34.1 % (33.0-51.0); Hemoglobin 11.2 g/dL (11.5-16.0); IMMATURE GRAN ABSOLUTE AUTO 0.02 K/mm3 (0.00-0.10); IMMATURE GRAN PERCENT AUTO 0 % (0-1); LYMPHOCYTES ABSOLUTE AUTO 2.23 K/mm3 (0.84-5.20); LYMPHOCYTES PERCENT AUTO 20 % (21-46); MONOCYTES ABSOLUTE AUTO 0.68 K/mm3 (0.16-1.47); MONOCYTES PERCENT AUTO 6 % (4-13); Mean Corpuscular HGB Conc 32.8 g/dL (31.5-36.5); Mean Corpuscular Volume 85 fL (80-100); NEUTROPHILS ABSOLUTE AUTO 8.38 K/mm3 (1.96-9.15); NEUTROPHILS PERCENT AUTO 74 % (41-73); NRBC ABSOLUTE 0.00 K/mm3 (0.00-0.02); NRBC Auto 0.0 /100 WBC (0.0-0.2); Platelet Count 303 K/mm3 (150-400); RDW Coefficient Variation 16.4 % (11.7-14.2); RDW Standard Deviation 50.8 fL (35.1-46.3)
[2025-06-28 18:49] LABS: Alanine Aminotransfer (ALT/SGP 37.0 U/L (12-78); Albumin, Blood 3.7 g/dL (3.4-5.0); Albumin/Globulin Ratio 1.0 (0.8-1.8); Anion Gap 10.0 mmol/L (3-11); Aspartate Aminotrans (AST/SGOT 11.0 U/L (12-37); Beta HCG, Quantitative, Serum 134155.0 mIU/mL (0-3); Bilirubin, Total 0.3 mg/dL (0.1-1.0); Blood Urea Nitrogen 8.0 mg/dL (8-24); CO2, Blood 23.0 mmol/L (21-32); Calcium, Blood 8.8 mg/dL (8.5-10.1); Chloride, Blood 105.0 mmol/L (98-108); Creatinine, Blood 0.72 mg/dL (0.40-1.00); Globulin, Blood 3.7 g/dL (2.2-4.0); Glucose, Blood 89.0 mg/dL (70-99); Potassium, Blood 3.5 mmol/L (3.5-5.5); Sodium, Blood 134.0 mmol/L (136-145); Total Protein, Blood 7.4 g/dL (6.4-8.2)
[2025-06-28 19:00] VITALS: BP 101/58
== END 2025-06-28 19:18 | disposition home or self-care (01) ==
LOC: ER 16:30
PROVIDERS: Student in an Organized Health Care Education/Training Program
DX: O20.0 Threatened abortion (principal); O99.011 Anemia complicating pregnancy, first trimester; D64.9 Anemia, unspecified; O99.281 Endocrine, nutritional and metabolic diseases complicating pregnancy, first trimester; E87.1 Hypo-osmolality and hyponatremia; Z3A.08 8 weeks gestation of pregnancy; Z79.891 Long term (current) use of opiate analgesic; Z79.899 Other long term (current) drug therapy; Z59.89 Other problems related to housing and economic circumstances
CPT/HCPCS: 76801; 80053; 84702; 85025; 99284-25

== ENCOUNTER 2025-09-03 17:18 | Emergency (ER) | payer OTHER ==
[~2025-09-03] VITALS: Ht 162.6 cm; Wt 63.5 kg
[2025-09-03 17:41] VITALS: BP 127/51
[2025-09-03 18:09] LABS: Source, Urine Clean Catch
[2025-09-03 18:12] LABS: Bilirubin, Urine Neg (Neg); Color, Urine Yellow (P-Yellow); Glucose Qualitative, Urine Neg (Neg); Ketones, Urine 4+ (Neg); Leukocyte Esterase, Urine 2+ (Neg); Protein, Urine 2+ (Neg); Specific Gravity, Urine 1.010 (1.003-1.022); Urobilinogen, Urine NORM (Normal)
[2025-09-03 18:20] LABS: White Blood Cells, Urine 50-100 /hpf (0-5)
[2025-09-03 18:21] LABS: Red Blood Cells, Urine 0-2 /hpf (0-2)
[2025-09-03] MEDS ORDERED: CEPH500 PO (18:51)
== END 2025-09-03 19:14 | disposition home or self-care (01) ==
LOC: ER 17:18
PROVIDERS: Emergency Medicine
DX: O23.41 Unspecified infection of urinary tract in pregnancy, first trimester (principal); Z3A.01 Less than 8 weeks gestation of pregnancy
CPT/HCPCS: 81001; 87077; 87086; 87186; 99283